=== PATIENT | male | born 1945 | race African-American/Black ===

== ENCOUNTER 2017-04-21 14:22 | Emergency (ER) | payer BC ==
[~2017-04-21] VITALS: Ht 177.8 cm; Wt 83.0 kg
[2017-04-21 15:17] LABS: HEMATOCRIT. 28.2 % (42.0-52.0); HEMOGLOBIN. 9.5 g/dL (14.0-18.0); MEAN CORPUSCULAR HEMOGLOBIN 30.9 pg (28.0-32.0); MEAN CORPUSCULAR VOLUME 92.2 fL (80.0-94.0); MEAN PLATELET VOLUME 9.1 fl (7.4-10.4); PLATELET 76 x1000/uL (130-400); RED BLOOD CELL COUNT 3.06 mill/uL (4.7-6.1); RED CELL DISTRIBUTION WIDTH 24.5 % (11.6-14.6)
[2017-04-21 15:28] LABS: CHLORIDE 103 mEq/L (98-107)
[2017-04-21 15:59] LABS: PLATELET ESTIMATE DECREASED
[2017-04-21] MEDS ORDERED: ASPIRIN 325MG EC TABLET PO ONE (17:15)
[2017-04-21 17:47] VITALS: BP 108/67
== END 2017-04-21 18:19 | disposition left against medical advice (07) ==
LOC: ER 15:47
DX: I47.1 Supraventricular tachycardia (principal); R79.89 Other specified abnormal findings of blood chemistry; D46.9 Myelodysplastic syndrome, unspecified; J44.9 Chronic obstructive pulmonary disease, unspecified
CPT/HCPCS: 36415; 71045; 80053; 83690; 84484; 85025; 93005; 99285